=== PATIENT | male | born 1960 | race Caucasian/White ===

== ENCOUNTER 2018-03-30 06:49 | Day surgery (SDC) | payer BC ==
[~2018-03-30] VITALS: Ht 182.9 cm; Wt 156.5 kg
[2018-03-30] VITALS (13 sets, daily range): BP systolic 117–152; BP diastolic 62–82
[~2018-03-30 06:49] MED LIST: BUPIVAcaine/PF 2.5mg/ml (0.25%) 10ml vial ONE; Cefazolin 2GM/100ML NS IVPB 100 ML IV ONE; IBUP200C5 PO; famotidine 20mg tablet PO ONE; ringers solution, lacted 1,000 ML IV ONE
[2018-03-30] MEDS ORDERED: hydrALAZINE 20mg/ml inj. IV PRN (08:15)
[2018-03-30] MEDS ORDERED: labetalol 20mg/4ml (5mg/ml) syringe IV PRN (08:15)
[2018-03-30] MEDS ORDERED: fentaNYL/PF 50MCG/1 ML 2ML syringe IV PRN ×2 (08:15)
[2018-03-30] MEDS ORDERED: ondansetron/PF 4mg/2ml inj IV PRN (08:15)
[2018-03-30] MEDS ORDERED: ringers solution, lacted 1,000 ML IV SCH (08:15)
[2018-03-30] MEDS ORDERED: morphine 4 MG/ML inj SYRINge IV PRN (08:15)
[2018-03-30 09:17] LABS: BASOPHILS # (AUTO) 0.1 X10'3 (0-0.2); BASOPHILS % (AUTO) 0.9 % (0-1); EOSINOPHILS # (AUTO) 0.2 X10'3 (0-0.9); EOSINOPHILS % (AUTO) 2.2 % (0-6); LYMPHOCYTES # (AUTO) 2.1 X10'3 (1.1-4.8); LYMPHOCYTES % (AUTO) 25.2 % (21-51); MEAN CORPUSCULAR HEMOGLOBIN 30.9 PG (27.0-31.0); MEAN CORPUSCULAR HGB CONC 34.7 % (33.0-36.5); MEAN CORPUSCULAR VOLUME 89.1 FL (78-98); MEAN PLATELET VOLUME 7.9 FL (7.4-10.4); MONOCYTES # (AUTO) 0.6 X10'3 (0-0.9); MONOCYTES % (AUTO) 7.6 % (2-12); NEUTROPHILS # (AUTO) 5.3 X10'3 (1.8-7.7); NEUTROPHILS % (AUTO) 64.1 % (42-75); PRE OP HEMATOCRIT 42.8 % (42.0-52.0); PRE OP HEMOGLOBIN 14.8 g/dL (14.0-17.9); PRE OP PLATELET COUNT 240 X10'3 (140-440); RED CELL DISTRIBUTION WIDTH 13.6 % (11.5-14.5)
[2018-03-30 09:36] LABS: ALBUMIN 3.3 G/DL (3.4-5.0); ALBUMIN/GLOBULIN RATIO 0.9 (1.1-1.5); ALKALINE PHOSPHATASE 70 IU/L (46-116); BLOOD UREA NITROGEN 13 MG/DL (7-18); BUN/CREATININE RATIO 14.8 (5.4-32.0); CALCIUM 8.3 MG/DL (8.5-10.1); CHLORIDE 107 MMOL/L (99-107); CREATININE 0.88 MG/DL (0.60-1.10); PRE OP ALT 32 U/L (30-65); PRE OP ANION GAP 7 (8-16); PRE OP AST 19 U/L (10-37); PRE OP BILIRUB, TOTAL 0.3 MG/DL (0.0-1.0); PRE OP GLUCOSE 125 MG/DL (70-104); PRE OP SODIUM 140 MMOL/L (135-145); TOTAL CARBON DIOXIDE 26.2 MMOL/L (24-32); TOTAL PROTEIN 6.8 G/DL (6.4-8.2); eGFR 89 ML/MIN
[2018-03-30] MEDS ORDERED: LIDOcaine 0.5% (5mg/ml) 50ml vial ONE (10:19)
[2018-03-30] MEDS ORDERED: fentaNYL/PF 50MCG/1 ML 2ML syringe ONE (10:20)
[2018-03-30] MEDS ORDERED: midazolam 2 mg/2 ml injection ONE (10:20)
[2018-03-30] MEDS: morphine 4 MG/ML inj SYRINge IV PRN ×2 (11:17→11:33)
[2018-03-30] MEDS ORDERED: ketorolac trometh. 30mg/ml inj. IV ONE (11:55)
== END 2018-03-30 12:54 | disposition home or self-care (01) ==
LOC: PAS 06:49
PROVIDERS: ATTEND Orthopaedic Surgery Hand Surgery
DX: G56.02 Carpal tunnel syndrome, left upper limb (principal); M65.332 Trigger finger, left middle finger; G47.33 Obstructive sleep apnea (adult) (pediatric); E66.01 Morbid (severe) obesity due to excess calories; Z68.42 Body mass index [BMI] 45.0-49.9, adult; Z79.1 Long term (current) use of non-steroidal anti-inflammatories (NSAID); Z90.89 Acquired absence of other organs; Z72.89 Other problems related to lifestyle; Z79.899 Other long term (current) drug therapy; Z98.890 Other specified postprocedural states
CPT/HCPCS: 26055; 29848; 36415; 80053; 85025; 93005; A6449; J0690; J1885; J2001; J2250; J2270; J3010; J3490; J7120; A7000